=== PATIENT | female | born 1960 ===

== ENCOUNTER 2017-10-20 08:12 | Emergency (ER) | payer SELFPAY ==
[2017-10-20] MEDS ORDERED: Albuterol-Ipratrop 3 mg / 0.5 (3 ml) UD ONE ×2 (08:29→08:56)
--- NOTE | 2017-10-20 08:42 | C.PDOC ---
History Of Present Illness 57 year old female with PMHx of asthma, COPD, HTN and depression presents to the ED for evaluation of URI symptoms, generalized body aches and stomach pain. Patient reports she came from [place] about a month ago, she is currently staying with her daughter and reports that the week of she caught a cold that has been getting progressively worse. Patient states she was using albuterol at home, last 2 days started using more often due to her symptoms getting worse and ran out of it this morning. Patient also states she had a subjective fever and chills. Patient denies headache, nausea, vomit, diarrhea, dysuria, hematuria. Time Seen by Provider: 10/20/17 08:26 Chief Complaint (Nursing): Flu-like Symptoms History Per: Patient History/Exam Limitations: no limitations Onset/Duration Of Symptoms: Days Current Symptoms Are (Timing): Still Present Location Of Pain: Diffuse Myalgias Sick Contacts (Context): None Associated Symptoms: Fever, Chills, Sinus Drainage, Myalgias, Nasal Congestion Ear Symptoms: Bilateral: None Severity: Mild Recent travel outside of the [facility]: Yes (Arrived form [place] a month ago) Additional History Per: Patient Past Medical History Reviewed: Historical Data, Nursing Documentation, Vital Signs Vital Signs: Last Vital Signs Temp 98.4 F 10/20/17 08:15 Pulse 98 H 10/20/17 10:30 Resp 20 10/20/17 10:30 BP 141/83 10/20/17 10:30 Pulse Ox 98 10/20/17 10:50 - Medical History PMH: Asthma, Depression, HTN Surgical History: No Surg Hx Family History: States: Unknown Family Hx - Social History Hx Alcohol Use: Yes Hx Substance Use: No - Immunization History Hx Tetanus Toxoid Vaccination: No Hx Influenza Vaccination: No Hx Pneumococcal Vaccination: No Review Of Systems Constitutional: Positive for: Fever, Chills ENT: Positive for: Nose Discharge, Nose Congestion Cardiovascular: Negative for: Chest Pain Respiratory: Positive for: Shortness of Breath. Negative for: Cough Gastrointestinal: Negative for: Nausea, Vomiting, Abdominal Pain Genitourinary: Negative for: Dysuria, Hematuria Musculoskeletal: Negative for: Back Pain Skin: Negative for: Rash Neurological: Negative for: Weakness, Numbness, Headache Physical Exam - Physical Exam Appears: Non-toxic, No Acute Distress Skin: Normal Color, Warm, Dry Head: Atraumatic, Normacephalic Nose: Discharge, Other (Congested) Oral Mucosa: Moist Throat: Normal, No Erythema, No Exudate Neck: Normal ROM, Supple Chest: Symmetrical Cardiovascular: Rhythm Regular, No Murmur Respiratory: Normal Breath Sounds, No Rales, No Rhonchi, No Wheezing Gastrointestinal/Abdominal: Soft, No Tenderness Extremity: Normal ROM, No Calf Tenderness, No Deformity, No Swelling Neurological/Psych: Oriented x3, Normal Speech, Normal Cognition Gait: Steady ED Course And Treatment O2 Sat by Pulse Oximetry: 98 (On RA) Pulse Ox Interpretation: Normal - Radiology CXR: Interpreted by Me, Viewed By Me CXR Interpretation: Yes: Other (No focal consolidation, significant pleural effusion, or definite pneumothorax identified.). No: No Acute Disease, Infiltrates Medical Decision Making Medical Decision Making: Impression : 57 y/o female with URI symptoms Plan: * CXR * Duoneb 3 ml IH * Motrin 600 mg PO * Tamiflu 75 mg PO * Prednisone 60 mg PO * Nebuilizer tretament * Influenza A B test Patient feeling better, negative for flu. will d/c with f/u. Disposition Counseled Patient/Family Regarding: Diagnosis, Need For Followup, Rx Given - Disposition Referrals: [facility] at [facility] [Outside] Disposition: HOME/ ROUTINE Disposition Time: 10:47 Condition: STABLE Additional Instructions: Follow up with your doctor or our clinic. Prescriptions: Ibuprofen [Motrin] 600 mg PO TID #15 tab Prednisone [Deltasone] 60 mg PO DAILY #15 tablet Instructions: Asthma (ED) Forms: [facility] (Jamaican), General Discharge Instructions - POA Present On Arrival: None - Clinical Impression Clinical Impression: Influenza-like illness, COPD exacerbation, Asthma - Scribe Statement The provider has reviewed the documentation as recorded by the Scribe Ata Pettit All medical record entries made by the Scribe were at my direction and personally dictated by me. I have reviewed the chart and agree that the record accurately reflects my personal performance of the history, physical exam, medical decision making, and the department course for this patient. I have also personally directed, reviewed, and agree with the discharge instructions and disposition.
[2017-10-20] MEDS: Albuterol-Ipratrop 3 mg / 0.5 (3 ml) UD IH SCH ×3 (09:00→09:30)
[2017-10-20 10:31] VITALS: RESP 20
--- NOTE | 2017-10-20 10:58 | RAD ---
HISTORY: SOB COMPARISON: None available. TECHNIQUE: Chest, one view. FINDINGS: Examination limited by habitus. LUNGS: No focal consolidation. Please note that chest x-ray has limited sensitivity for the detection of pulmonary masses. PLEURA: No significant pleural effusion identified. No definite pneumothorax . CARDIOVASCULAR: The cardiomediastinal silhouette appears within normal limits of size. OSSEOUS STRUCTURES: No acute osseous abnormality identified. VISUALIZED UPPER ABDOMEN: Unremarkable. OTHER FINDINGS: None. IMPRESSION: No focal consolidation, significant pleural effusion, or definite pneumothorax identified.
[2017-10-20 11:27] VITALS: BP 139/89; PULSE 93; TEMP 97.9; O2SAT 96
== END 2017-10-20 11:27 | disposition home or self-care (01) ==
LOC: C.ER 08:12
DX: J11.1 Influenza due to unidentified influenza virus with other respiratory manifestations (principal); J44.1 Chronic obstructive pulmonary disease with (acute) exacerbation

== ENCOUNTER 2017-12-15 12:21 | Emergency (ER) | payer MEDICAID, OTHER ==
[2017-12-15 12:30] VITALS: RESP 18; O2SAT 97
[2017-12-15] MEDS ORDERED: Albuterol-Ipratrop 3 mg / 0.5 (3 ml) UD INH STA ×2 (12:57→14:04)
[2017-12-15] MEDS ORDERED: Albuterol-Ipratrop 3 mg / 0.5 (3 ml) UD ONE ×2 (13:13→14:10)
--- NOTE | 2017-12-15 13:22 | RAD ---
HISTORY: SOB COMPARISON: Chest x-ray performed 10/20/17 TECHNIQUE: Chest PA and lateral FINDINGS: Examination limited by habitus. LUNGS: No focal consolidation. Please note that chest x-ray has limited sensitivity for the detection of pulmonary masses. PLEURA: No significant pleural effusion identified. No definite pneumothorax . CARDIOVASCULAR: The cardiomediastinal silhouette appears within normal limits of size. OSSEOUS STRUCTURES: No acute osseous abnormality identified. VISUALIZED UPPER ABDOMEN: Unremarkable. OTHER FINDINGS: None. IMPRESSION: No focal consolidation identified.
--- NOTE | 2017-12-15 13:22 | C.PDOC ---
History Of Present Illness 57-year-old female, PMHx includes Asthma, Hypertension, Anxiety and Depression ( medication not taken after moving from [place]), presents to the emergency department with complaints of nasal congestion, and productive cough over the past several days. Patient states symptoms have been gradually worsening, and feels like asthma exacerbation. Patient reports she is using her asthma medications at home with minimal relief. Denies fevers or chills. No other complaints at this time. Time Seen by Provider: 12/15/17 12:47 Chief Complaint (Nursing): Cough, Cold, Congestion History Per: Patient History/Exam Limitations: no limitations Onset/Duration Of Symptoms: Days Current Symptoms Are (Timing): Still Present Severity: Moderate Past Medical History Reviewed: Historical Data, Nursing Documentation, Vital Signs Vital Signs: Last Vital Signs Temp 97.8 F 12/15/17 12:26 Pulse 95 H 12/15/17 12:26 Resp 18 12/15/17 12:26 BP 145/97 H 12/15/17 12:26 Pulse Ox 97 12/15/17 14:44 - Medical History PMH: Anxiety, Asthma, Bronchitis (hx of chronic bronchitis), Depression, HTN Family History: States: No Known Family Hx - Social History Hx Alcohol Use: Yes Hx Substance Use: No - Immunization History Hx Tetanus Toxoid Vaccination: No Hx Influenza Vaccination: No Hx Pneumococcal Vaccination: No Review Of Systems Constitutional: Negative for: Fever, Chills Cardiovascular: Negative for: Chest Pain Respiratory: Positive for: Cough, Shortness of Breath, Wheezing Gastrointestinal: Negative for: Nausea, Vomiting Musculoskeletal: Negative for: Back Pain Neurological: Negative for: Weakness, Numbness, Headache, Dizziness Physical Exam - Physical Exam Appears: Non-toxic, No Acute Distress Skin: Warm, Dry, No Rash Head: Normacephalic Eye(s): bilateral: Normal Inspection, PERRL Nose: Normal Oral Mucosa: Moist Lips: Normal Appearing Neck: Normal ROM Chest: Symmetrical Cardiovascular: Rhythm Regular, No Murmur Respiratory: No Decreased Breath Sounds, No Accessory Muscle Use, Wheezing (B/L , expiratory), Other (No acute respiratory distress) Extremity: Normal ROM Neurological/Psych: Oriented x3, Normal Speech ED Course And Treatment - Laboratory Results Result Diagrams: 12/15/17 13:28 12/15/17 13:28 ECG: Interpreted By Me, Viewed By Me ECG Rhythm: Sinus Rhythm, PVC (Isolated) ECG Interpretation: No Acute Changes Interpretation Of ECG: Non-specific T wave changes Rate From EC O2 Sat by Pulse Oximetry: 97 (RA) Pulse Ox Interpretation: Normal Medical Decision Making Medical Decision Making: Plan: * EKG * BNP, CMP, Trop * CBC * Chest X-Ray * Duoneb, Prednisone * Peak Flow * Reassess and Disposition Reassess: On re-evaluation. patient does not appear to be in any acute distress. Wheezing has improved and lungs are CTA bilaterally. She will be discharged for outpatient f/u with PMD/clinic in 1-2 days and Rx. Patient is agreeable with plan and all questions answered. Disposition Counseled Patient/Family Regarding: Studies Performed, Diagnosis, Need For Followup, Rx Given - Disposition Referrals: [facility] [Outside] Disposition: HOME/ ROUTINE Disposition Time: 14:37 Condition: STABLE Additional Instructions: follow up with your doctor in 2 days call to make an appointment take medications as prescribed return to ER if symptoms worsens or progress Prescriptions: Albuterol HFA [Ventolin HFA 90 mcg/actuation (8 g)] 2 puff IH [id number] #1 puff Azithromycin [Zithromax] 250 mg PO DAILY #4 tab Ondansetron ODT [Zofran ODT] 4 mg PO TID PRN #12 odt PRN Reason: Nausea/Vomiting predniSONE [predniSONE Tab] 50 mg PO DAILY #4 tab Instructions: Acute Bronchitis (ED) Forms: [facility] (Wallisian), General Discharge Instructions - Clinical Impression Clinical Impression: Bronchitis - Scribe Statement The provider has reviewed the documentation as recorded by the Scribe (Sal Martin) All medical record entries made by the Scribe were at my direction and personally dictated by me. I have reviewed the chart and agree that the record accurately reflects my personal performance of the history, physical exam, medical decision making, and the department course for this patient. I have also personally directed, reviewed, and agree with the discharge instructions and disposition.
[2017-12-15 13:36] LABS: BASO # 0.1 K/uL (0.0-0.2); BASO % 0.8 % (0.0-2.0); EOS # 0.4 K/uL (0.0-0.7); EOS % 3.7 % (0.0-4.0); HEMOGLOBIN 13.7 g/dL (11.0-16.0); LYMPH # 4.4 K/uL (1.0-4.3); LYMPH % 42.1 % (20.0-40.0); MEAN CELL VOLUME 86.5 fL (81.0-99.0); MEAN CORPUSCULAR HEMOGLOBIN 29.1 pg (27.0-31.0); MEAN CORPUSCULAR HGB CONC 33.6 g/dL (33.0-37.0); MEAN PLATELET VOLUME 9.6 fL (7.2-11.7); MONO # 0.6 K/uL (0.0-0.8); MONO % 5.9 % (0.0-10.0); NEUT # 4.9 K/uL (1.8-7.0); NEUT % 47.5 % (50.0-75.0); NRBC % 0.1 % (0.0-2.0); RBC 4.72 Mil/uL (3.80-5.20); RED CELL DISTRIBUTION WIDTH 18.5 % (11.5-14.5); WHITE BLOOD COUNT 10.4 K/uL (4.8-10.8)
[2017-12-15 13:45] LABS: ALB/GLOB RATIO 0.9 (1.0-2.1); ALT/SGPT 44 U/L (9-52); AST/SGOT 43 U/L (14-36); BLOOD UREA NITROGEN 10 mg/dL (7-17); GFR AFRICAN-AMERICAN > 60; GFR NON-AFRICAN AMERICAN > 60
[2017-12-15 13:57] LABS: B-TYPE NATRIURETIC PEPTIDE 59.5 pg/mL (0-900)
[2017-12-15 15:19] VITALS: BP 134/96; PULSE 90; TEMP 97
== END 2017-12-15 15:15 | disposition home or self-care (01) ==
LOC: C.ER 12:21
DX: J40 Bronchitis, not specified as acute or chronic (principal); I10 Essential (primary) hypertension

== ENCOUNTER 2018-02-24 15:25 | Observation (INO) | payer MEDICAID, OTHER ==
[2018-02-24] MEDS ORDERED: Albuterol-Ipratrop 3 mg / 0.5 (3 ml) UD INH STA ×3 (15:46→17:35)
[2018-02-24 16:02] LABS: BASO # 0.1 K/uL (0.0-0.2); BASO % 0.6 % (0.0-2.0); EOS # 0.4 K/uL (0.0-0.7); EOS % 3.1 % (0.0-4.0); HEMOGLOBIN 13.4 g/dL (11.0-16.0); LYMPH # 4.2 K/uL (1.0-4.3); LYMPH % 35.7 % (20.0-40.0); MEAN CELL VOLUME 88.7 fL (81.0-99.0); MEAN CORPUSCULAR HEMOGLOBIN 30.5 pg (27.0-31.0); MEAN CORPUSCULAR HGB CONC 34.4 g/dL (33.0-37.0); MEAN PLATELET VOLUME 10.1 fL (7.2-11.7); MONO # 0.7 K/uL (0.0-0.8); MONO % 5.8 % (0.0-10.0); NEUT # 6.4 K/uL (1.8-7.0); NEUT % 54.8 % (50.0-75.0); RBC 4.39 Mil/uL (3.80-5.20); RED CELL DISTRIBUTION WIDTH 16.7 % (11.5-14.5); WHITE BLOOD COUNT 11.7 K/uL (4.8-10.8)
[2018-02-24] MEDS ORDERED: Albuterol-Ipratrop 3 mg / 0.5 (3 ml) UD ONE ×2 (16:11→17:40)
[2018-02-24 16:22] LABS: ALBUMIN 4.1 g/dL (3.5-5.0); ALT/SGPT 35 U/L (9-52); AST/SGOT 39 U/L (14-36); BLOOD UREA NITROGEN 14 mg/dL (7-17); CALCIUM 9.4 mg/dl (8.6-10.4); GFR AFRICAN-AMERICAN > 60; GFR NON-AFRICAN AMERICAN > 60
--- NOTE | 2018-02-24 16:31 | RAD ---
PROCEDURE: CHEST RADIOGRAPH, 1 VIEW HISTORY: Shortness of breath COMPARISON: 12/15/2017. FINDINGS: LUNGS: The lungs are well inflated and clear. PLEURA: No pneumothorax or pleural fluid seen. CARDIOVASCULAR: There is mild cardiomegaly. OSSEOUS STRUCTURES: No significant abnormalities. VISUALIZED UPPER ABDOMEN: Normal. OTHER FINDINGS: None. IMPRESSION: No active pulmonary disease.
[2018-02-24 16:34] LABS: B-TYPE NATRIURETIC PEPTIDE 32.9 pg/mL (0-900)
--- NOTE | 2018-02-24 16:40 | C.PDOC ---
History Of Present Illness 58 year old female, whose PMHx includes asthma, presents to the ED for evaluation of shortness of breath which has been progressing over the past 2 weeks. She also reports a nonproductive cough that is associated with chest pain. Patient reports using her home medications without improvement. Patient admits to smoking cigarettes. She denies fever, chills, or history of prior intubations. Time Seen by Provider: 02/24/18 15:41 Chief Complaint (Nursing): Shortness Of Breath History Per: Patient History/Exam Limitations: no limitations Onset/Duration Of Symptoms: Other (2 weeks ) Current Symptoms Are (Timing): Still Present Quality: "Pain" Current Respiratory Medications: See Home Med List Associated Symptoms: Chest Pain (associated with cough ). denies: Fever, Chills , Productive Cough (nonproductive ) Additional History Per: Patient Past Medical History Reviewed: Historical Data, Nursing Documentation, Vital Signs Vital Signs: Last Vital Signs Temp 98.1 F 02/24/18 23:52 Pulse 94 H 02/24/18 23:52 Resp 18 02/24/18 23:52 BP 112/72 02/24/18 23:52 Pulse Ox 97 02/25/18 04:15 - Medical History PMH: Anxiety, Asthma, Bronchitis (hx of chronic bronchitis), Depression, HTN Surgical History: No Surg Hx Family History: States: Unknown Family Hx - Social History Hx Tobacco Use: Yes Hx Alcohol Use: Yes Hx Substance Use: No - Immunization History Hx Tetanus Toxoid Vaccination: No Hx Influenza Vaccination: No Hx Pneumococcal Vaccination: No Review Of Systems Constitutional: Negative for: Fever, Chills Cardiovascular: Positive for: Chest Pain Respiratory: Positive for: Cough, Shortness of Breath. Negative for: Sputum Physical Exam - Physical Exam Appears: Non-toxic, No Acute Distress Skin: Normal Color, Warm, Dry Head: Atraumatic, Normacephalic Eye(s): bilateral: Normal Inspection Oral Mucosa: Moist Neck: Supple Chest: Symmetrical, No Deformity, No Tenderness Cardiovascular: Rhythm Regular, No Murmur Respiratory: No Rales, No Rhonchi, Wheezing (expiratory ) Gastrointestinal/Abdominal: Normal Exam, Bowel Sounds, Soft Extremity: Normal ROM, Capillary Refill (less than 2 seconds ) Neurological/Psych: Oriented x3, Normal Speech, Normal Cognition ED Course And Treatment - Laboratory Results Result Diagrams: 02/25/18 06:40 02/25/18 06:40 ECG: Interpreted By Me, Viewed By Me ECG Rhythm: Sinus Rhythm Interpretation Of ECG: Normal Sinus Rhythm at rate 83bpm. Normal axis. Normal intervals. Rate From EC O2 Sat by Pulse Oximetry: 98 (on RA) Pulse Ox Interpretation: Normal Medical Decision Making Medical Decision Making: Assessment: shortness of breath, cough, chest pain Plan: * bloodwork * CXR * EKG * Albuterol INH * Solu-Medrol IVP * reassess and disposition Progress: Bloodwork, CXR, EKG ordered and reviewed. Albuterol INH and Solu-Medrol IVP administered. Disposition Discussed With Dr.: Michael Burnett Jr. Doctor Will See Patient In The: Hospital Counseled Patient/Family Regarding: Studies Performed, Diagnosis - Disposition Disposition: HOSPITALIZED Disposition Time: 17:55 Condition: FAIR - Clinical Impression Clinical Impression: Status asthmaticus - Scribe Statement The provider has reviewed the documentation as recorded by the Scribe (Clementine Mcgowan) Provider Attestation: All medical record entries made by the Scribe were at my direction and personally dictated by me. I have reviewed the chart and agree that the record accurately reflects my personal performance of the history, physical exam, medical decision making, and the department course for this patient. I have also personally directed, reviewed, and agree with the discharge instructions and disposition.
[2018-02-24] MEDS ORDERED: cefTRIAXone IV 1 gm in Dextros 50 ML IVPB STA (19:04)
[2018-02-24] MEDS ORDERED: cefTRIAXone IV 1 gm in Dextros 50 ML IVPB ONE (19:30)
--- NOTE | 2018-02-24 19:51 | CP.PCM.HP ---
History of Present Illness - History of Present Illness History of Present Illness: CC: SOB, cough 2 weeks, fevers/chills, back [id number] PMD: Dr. Galindo From [place] FULL CODE This patient is a 58yo F w/ a PMhx of HTN, Asthma only on albuterol currently smoking 1/2 pack a day living with 4 other smokers, depression/anxiety and stressful living situation who is coming into the hospital for 2 weeks of shortness of breath which is not relieved by her inhalers. She also is complaining of a hacking cough, white phlegm, for 2 weeks. She was recently in [place] on vacation, and came back 4 days ago which is when her back pain started. She states she had PFT's done recently which showed "fluid' on her lungs, but did not diagnose her with COPD. She is admitting to fevers/chills, SOB, and back/lung pain that is 5/10 in nature, and tingling in her lower extremities and finger tips. She denies SCHWARTZ, CP, abdominal pain, N/V/D, dysuria/ freq/urg or lower extremity swelling. No hx of blood clots or family blood clots. PMhx: HTN, Asthma, Depression/Anxiety Meds: Enalapril maleate 5mg, Hctz 12.5mg, Seroquel 100mg HS, gabapentin 300mg TID Allergies: Denies Surgeries: 2c sections, total abdominal hysterectomy FamHx: DM, HTN, cervical cancer grandma Social: Smokes 1/2 pack a day, smokes marijuana daily as well, currently not working 2/2 to pain, independent in all IADL and ADL Present on Admission - Present on Admission Any Indicators Present on Admission: No History of DVT/PE: No History of Uncontrolled Diabetes: No Past Patient History - Infectious Disease Hx of Infectious Diseases: None - Past Social History Smoking Status: Light Smoker < 10 Cigarettes Daily - CARDIAC Hx Hypertension: Yes - PULMONARY Hx Asthma: Yes Hx Bronchitis: Yes (hx of chronic bronchitis) - PSYCHIATRIC Hx Anxiety: Yes Hx Depression: Yes Hx Substance Use: No - SURGICAL HISTORY Hx Section: Yes Hx Hysterectomy: Yes Other/Comment: CYST REMOVAL, TUMOR REMOVAL FROM BREAST - ANESTHESIA Hx Anesthesia: Yes Hx Anesthesia Reactions: No Hx Malignant Hyperthermia: No Meds Allergies/Adverse Reactions: Allergies Allergy/AdvReac Type Severity Reaction Status Date / Time No Known Allergies Allergy Verified 02/24/18 15:32 Physical Exam - Constitutional Appears: Well, Non-toxic Additional comments: coughing, short of breath, RR 20 - Head Exam Head Exam: ATRAUMATIC, NORMAL INSPECTION - Eye Exam Eye Exam: EOMI, Normal appearance, PERRL. absent: Scleral icterus Pupil Exam: NORMAL ACCOMODATION, PERRL. absent: Unequal - ENT Exam ENT Exam: Mucous Membranes Moist - Neck Exam Neck exam: Positive for: Full Rom. Negative for: Lymphadenopathy, Tenderness, Thyromegaly - Respiratory Exam Respiratory Exam: Wheezes, NORMAL BREATHING PATTERN. absent: Chest Wall Tenderness, Decreased Breath Sounds, Clear to Auscultation Bilateral (rhales left lower lung field ), Respiratory Distress, Stridor - Cardiovascular Exam Cardiovascular Exam: REGULAR RHYTHM, +S1, +S2 - GI/Abdominal Exam GI & Abdominal Exam: Normal Bowel Sounds, Soft. absent: Hernia, Organomegaly, Pulsatile Mass, Rebound, Rigid, Tenderness - Extremities Exam Extremities exam: Positive for: full ROM. Negative for: calf tenderness, pedal edema, tenderness - Back Exam Back exam: NORMAL INSPECTION. absent: CVA tenderness (L), CVA tenderness (R) - Neurological Exam Neurological exam: Alert, CN II-XII Intact, Normal Gait, Oriented x3 - Psychiatric Exam Psychiatric exam: Normal Affect, Normal Mood - Skin Skin Exam: Warm Results - Vital Signs Recent Vital Signs: Last Vital Signs Temp 98.4 F 02/24/18 19:21 Pulse 102 H 02/24/18 19:23 Resp 16 02/24/18 19:23 BP 136/76 02/24/18 19:23 Pulse Ox 96 02/24/18 19:23 - Labs Result Diagrams: 02/24/18 15:58 02/24/18 15:58 Labs: Laboratory Results - last 24 hr 02/24/18 02/24/18 02/24/18 15:58 15:58 19:02 WBC 11.7 H RBC 4.39 Hgb 13.4 Hct 39.0 MCV 88.7 D MCH 30.5 MCHC 34.4 RDW 16.7 H Plt Count 148 MPV 10.1 Neut % (Auto) 54.8 Lymph % (Auto) 35.7 [place] % (Auto) 5.8 Eos % (Auto) 3.1 Baso % (Auto) 0.6 Neut # (Auto) 6.4 Lymph # (Auto) 4.2 [place] # (Auto) 0.7 Eos # (Auto) 0.4 Baso # (Auto) 0.1 Sodium 143 Potassium 3.5 L Chloride 104 Carbon Dioxide 25 Anion Gap 17 BUN 14 Creatinine 0.8 Est GFR ( Amer) > 60 Est GFR (Non-Af Amer) > 60 Random Glucose 103 Calcium 9.4 Total Bilirubin 0.7 AST 39 H ALT 35 Alkaline Phosphatase 140 H Troponin I < 0.0120 NT-Pro-B Natriuret Pep 32.9 Total Protein 8.2 Albumin 4.1 Globulin 4.1 H Albumin/Globulin Ratio 1.0 Influenza Typ A,B (EIA) Negative for flu a/b Assessment & Plan - Assessment and Plan (Free Text) Assessment: 58yo F admitted for Asthma Exacerbation and Community Acquired PNA PNA -elevated WBC, tactile fevers/chills, cough with productive sputum, rhales on exam -CAP -Azithromycin 500mg Ceftriaxone 1g daily -mucinex BID -incentive spirometry -OOB encouraged -smoking cessation -duonebs PRN -sputum cultures f/u -blood cultures f/u -f/u D-Dimer as patient does not PERC out; if negative PE most likely ruled out however if positive will order CTA PE protocol; creatinine good Asthma Exacerbation -duonebs -patient will need long acting inhaler on discharge -smoking cessation Hx of HTN -c/w enalapril and hctz -will monitor Hx of Depression -c/w seroquel -c/w gabapentin Current Smoker -patch given -patient wants to quit Proph -GI prophylaxis not indicated -DVT proph SCD while sleeping, OOB encouraged -f/u TSH, hemoglobin A1C, lipid panel Discussed with Dr. Lex Scott PGY2 Decision To Admit - Pt Status Changed To: Hospital Disposition Of: Inpatient - Admit Certification Admit to Inpatient:: After my assessment, the patient will require hospitalization for at least two midnights. This is because of the severity of symptoms shown, intensity of services needed, and/or the medical risk in this patient being treated as an outpatient. - InPatient: Physician Admission Certification:: CAP needing IV abx - . Bed Request Type: Regular Admitting Physician: Michael Burnett Jr.
[2018-02-24] MEDS: Azithromycin 500 MG in Sodium Chloride 0.9% 250 ML IVPB SCH (20:00)
[2018-02-24] MEDS ORDERED: Azithromycin 500 MG in Sodium Chloride 0.9% 250 ML IVPB ONE (20:00)
[2018-02-24] MEDS: guaiFENesin 600 mg ER Tab PO SCH (21:00)
[2018-02-25] MEDS: Albuterol-Ipratrop 3 mg / 0.5 (3 ml) UD INH PRN ×2 (01:34→13:00)
[2018-02-25 06:51] LABS: BASO # 0.1 K/uL (0.0-0.2); BASO % 0.5 % (0.0-2.0); HEMOGLOBIN 12.8 g/dL (11.0-16.0); LYMPH # 1.5 K/uL (1.0-4.3); LYMPH % 11.3 % (20.0-40.0); MEAN CELL VOLUME 89.6 fL (81.0-99.0); MEAN CORPUSCULAR HEMOGLOBIN 30.5 pg (27.0-31.0); MEAN CORPUSCULAR HGB CONC 34.1 g/dL (33.0-37.0); MEAN PLATELET VOLUME 10.5 fL (7.2-11.7); MONO # 0.2 K/uL (0.0-0.8); MONO % 1.5 % (0.0-10.0); NEUT # 11.6 K/uL (1.8-7.0); NEUT % 86.7 % (50.0-75.0); RBC 4.19 Mil/uL (3.80-5.20); RED CELL DISTRIBUTION WIDTH 16.6 % (11.5-14.5); WHITE BLOOD COUNT 13.3 K/uL (4.8-10.8)
[2018-02-25 07:08] LABS: ALBUMIN 3.9 g/dL (3.5-5.0); ALT/SGPT 27 U/L (9-52); AST/SGOT 32 U/L (14-36); BLOOD UREA NITROGEN 18 mg/dL (7-17); CALCIUM 9.6 mg/dl (8.6-10.4); GFR AFRICAN-AMERICAN > 60; GFR NON-AFRICAN AMERICAN > 60; HDL CHOLESTEROL 49 mg/dL (30-70)
[2018-02-25 07:12] LABS: LDL CHOLESTEROL 68 mg/dL (0-129)
[2018-02-25 08:03] VITALS: RESP 20
[2018-02-25] MEDS: guaiFENesin 600 mg ER Tab PO SCH (09:15)
[2018-02-25] MEDS: Azithromycin 500 MG in Sodium Chloride 0.9% 250 ML IVPB SCH (09:16)
[2018-02-25] MEDS ORDERED: cefTRIAXone IV 1 gm in Dextros 50 ML IVPB SCH (10:00)
[2018-02-25] MEDS ORDERED: Oxycodone/Acetaminophen 5/325 mg Tab PO ONE (14:19)
[2018-02-25] MEDS: guaiFENesin-Codeine 100-10mg/5ml Syrup (10ml) UD PO SCH (17:49)
--- NOTE | 2018-02-25 19:45 | CP.PCM.PN ---
Subjective - Date & Time of Evaluation Date of Evaluation: 02/25/18 Time of Evaluation: 21:05 - Subjective Subjective: Patient seen and examined at bedside Doing well. States back pain is almost completely resolved but still feels like she has phlegm stuck in her chest. No other complaints at this time Objective - Vital Signs/Intake and Output Vital Signs (last 24 hours): Temp Pulse Resp BP Pulse Ox 98.3 F 90 20 111/69 96 02/25/18 16:03 02/25/18 16:03 02/25/18 16:03 02/25/18 16:03 02/25/18 16:03 - Medications Medications: Current Medications Albuterol/Ipratropium (Duoneb 3 Mg/0.5 Mg (3 Ml) Ud) 3 ml INH RQ4 [facility] Enalapril Maleate (Vasotec) 20 mg PO DAILY [facility] Last Admin: 02/25/18 09:16 Dose: 20 mg Enoxaparin Sodium (Lovenox) 40 mg SC DAILY [facility] Gabapentin (Neurontin) 300 mg PO BID [facility] Last Admin: 02/25/18 17:45 Dose: 300 mg Guaifenesin/Codeine Phosphate (Guaifenesin/Codeine) 10 ml PO Q6 [facility] Stop: 02/26/18 06:01 Last Admin: 02/25/18 17:49 Dose: 10 ml Azithromycin 500 mg/ Sodium (Chloride) 250 mls @ 250 mls/hr IVPB DAILY [facility] PRN Reason: Protocol Last Admin: 02/25/18 09:16 Dose: 250 mls/hr Methylprednisolone (Solu-Medrol) 40 mg IV Q12 [facility] Nicotine (Nicoderm Cq) 1 patch TD DAILY [facility] Last Admin: 02/25/18 09:16 Dose: 1 patch Oxycodone/Acetaminophen (Percocet 5/325 Mg Tab) 1 tab PO Q8H PRN PRN Reason: Pain, moderate (4-7) Stop: 02/28/18 14:17 Quetiapine Fumarate (Seroquel) 100 mg PO HS [facility] Last Admin: 02/24/18 21:18 Dose: 100 mg Fluticasone/Salmeterol (Advair Diskus 250/50) 1 puff INH RQ12 [facility] Tiotropium [place] (Spiriva) 18 mcg INH RQ24 [facility] - Labs Labs: 02/25/18 06:40 02/25/18 06:40 - Constitutional Appears: Well - Head Exam Head Exam: ATRAUMATIC, NORMAL INSPECTION, NORMOCEPHALIC - Eye Exam Eye Exam: EOMI, Normal appearance, PERRL Pupil Exam: NORMAL ACCOMODATION, PERRL - ENT Exam ENT Exam: Mucous Membranes Moist, Normal Exam - Neck Exam Neck Exam: Full ROM, Normal Inspection. absent: Lymphadenopathy - Respiratory Exam Respiratory Exam: Clear to Ausculation Bilateral, NORMAL BREATHING PATTERN - Cardiovascular Exam Cardiovascular Exam: REGULAR RHYTHM, +S1, +S2. absent: Murmur - GI/Abdominal Exam GI & Abdominal Exam: Soft, Normal Bowel Sounds. absent: Tenderness - Extremities Exam Extremities Exam: Full ROM, Normal Capillary Refill, Normal Inspection. absent : Joint Swelling, Pedal Edema - Back Exam Back Exam: NORMAL INSPECTION - Neurological Exam Neurological Exam: Alert, Awake, CN II-XII Intact, Normal Gait, Oriented x3 - Psychiatric Exam Psychiatric exam: Normal Affect, Normal Mood - Skin Skin Exam: Dry, Intact, Normal Color, Warm Assessment and Plan (1) COPD exacerbation Assessment & Plan: Duonebs Q4 TEE Spiriva QD - will need script on discharge Advair Q12 - will need script on discharge Robitussin with codeine for the cough. I gave three doses scheduled. Reassess cough to determine if more is needed. May switch to PRN at this point Azithromycin 500 QD to decrease the inflammation associated with the attack. No PNA being treated Solumedrol 40 IV Q12 cough has resulted in severe back pain, resolved with Perc 5/325 Q8H Status: Acute (2) HTN (hypertension) Assessment & Plan: Vasotec 20 PO QD Status: Acute (3) Tobacco abuse Assessment & Plan: Nicotine patch counselling given Status: Acute (4) Insomnia Assessment & Plan: Seroquel 100 PO HS Status: Acute (5) Prophylactic measure Assessment & Plan: Lovenox 40 SC QD SCD No GI PPX indicated at this time Status: Acute
--- NOTE | 2018-02-25 21:49 | CARD ---
APPROVED REPORT EKG Measurement Heart [id number] <Conclusion> Normal sinus rhythm Normal ECG
[2018-02-25] MEDS: Oxycodone/Acetaminophen 5/325 mg Tab PO PRN (22:34)
[2018-02-25] MEDS: Albuterol-Ipratrop 3 mg / 0.5 (3 ml) UD INH SCH ×2 (22:44→23:59)
[2018-02-25] MEDS: Fluticasone-Salmeterol 250-50mcg Diskus INH SCH (22:45)
[2018-02-26] MEDS: Albuterol-Ipratrop 3 mg / 0.5 (3 ml) UD INH SCH ×5 (03:26→19:34)
[2018-02-26] MEDS: guaiFENesin-Codeine 100-10mg/5ml Syrup (10ml) UD PO SCH ×2 (05:39)
[2018-02-26] MEDS: Oxycodone/Acetaminophen 5/325 mg Tab PO PRN ×2 (06:51→18:40)
[2018-02-26 06:57] LABS: LYMPH # 1.8 K/uL (1.0-4.3); LYMPH % 10.9 % (20.0-40.0); MEAN CELL VOLUME 89.8 fL (81.0-99.0); MEAN CORPUSCULAR HEMOGLOBIN 30.3 pg (27.0-31.0); MEAN CORPUSCULAR HGB CONC 33.8 g/dL (33.0-37.0); MEAN PLATELET VOLUME 10.5 fL (7.2-11.7); MONO # 0.6 K/uL (0.0-0.8); MONO % 3.4 % (0.0-10.0); NEUT # 14.5 K/uL (1.8-7.0); NEUT % 85.7 % (50.0-75.0); RBC 3.97 Mil/uL (3.80-5.20); RED CELL DISTRIBUTION WIDTH 16.7 % (11.5-14.5)
[2018-02-26 07:46] LABS: ALB/GLOB RATIO 1.1 (1.0-2.1); ALBUMIN 3.7 g/dL (3.5-5.0); ALT/SGPT 28 U/L (9-52); AST/SGOT 30 U/L (14-36); BLOOD UREA NITROGEN 18 mg/dL (7-17); CALCIUM 9.4 mg/dl (8.6-10.4); GFR AFRICAN-AMERICAN > 60; GFR NON-AFRICAN AMERICAN > 60
[2018-02-26] MEDS: Tiotropium 18 mcg Cap For Inhalation INH SCH (07:50)
[2018-02-26] MEDS: Fluticasone-Salmeterol 250-50mcg Diskus INH SCH ×2 (07:51→19:34)
[2018-02-26] MEDS: Enoxaparin 40 mg Syringe SC SCH (10:45)
[2018-02-26] MEDS: Azithromycin 500 MG in Sodium Chloride 0.9% 250 ML IVPB SCH (10:47)
--- NOTE | 2018-02-26 16:57 | CP.PCM.PN ---
<Marisabel Leon - Last Filed: 02/26/18 17:42> Subjective - Date & Time of Evaluation Date of Evaluation: 02/26/18 Time of Evaluation: 16:49 - Subjective Subjective: PGY2 progress note for Dr. Burnett Pt seen and examined at bedside this monring. Pt states that her breathing has improved since her admission but she continues to complain of slight wheezing. Patient denies having any CP, abd pain, N/V/D/C, F/C. patient does c/o dry and chest congestion. Objective - Vital Signs/Intake and Output Vital Signs (last 24 hours): Temp Pulse Resp BP Pulse Ox 97.4 F L 88 20 123/84 97 02/26/18 15:00 02/26/18 15:00 02/26/18 15:00 02/26/18 15:00 02/26/18 15:00 Intake and Output: 02/26/18 02/26/18 06:59 18:59 Intake Total 680 Balance 680 - Medications Medications: Current Medications Albuterol/Ipratropium (Duoneb 3 Mg/0.5 Mg (3 Ml) Ud) 3 ml INH RQ4 [facility] Last Admin: 02/26/18 15:33 Dose: 3 ml Enalapril Maleate (Vasotec) 20 mg PO DAILY [facility] Last Admin: 02/26/18 10:44 Dose: 20 mg Enoxaparin Sodium (Lovenox) 40 mg SC DAILY [facility] Last Admin: 02/26/18 10:45 Dose: 40 mg Gabapentin (Neurontin) 300 mg PO BID [facility] Last Admin: 02/26/18 10:44 Dose: 300 mg Azithromycin 500 mg/ Sodium (Chloride) 250 mls @ 250 mls/hr IVPB DAILY [facility] PRN Reason: Protocol Last Admin: 02/26/18 10:47 Dose: 250 mls/hr Methylprednisolone (Solu-Medrol) 40 mg IV Q12 [facility] Last Admin: 02/26/18 10:44 Dose: 40 mg Nicotine (Nicoderm Cq) 1 patch TD DAILY [facility] Last Admin: 02/26/18 10:43 Dose: 1 patch Oxycodone/Acetaminophen (Percocet 5/325 Mg Tab) 1 tab PO Q8H PRN PRN Reason: Pain, moderate (4-7) Stop: 02/28/18 14:17 Last Admin: 02/26/18 06:51 Dose: 1 tab Pantoprazole Sodium (Protonix Ec Tab) 40 mg PO DAILY TEE Quetiapine Fumarate (Seroquel) 100 mg PO HS [facility] Last Admin: 02/25/18 21:17 Dose: 100 mg Fluticasone/Salmeterol (Advair Diskus 250/50) 1 puff INH RQ12 [facility] Last Admin: 02/26/18 07:51 Dose: 1 puff Tiotropium [place] (Spiriva) 18 mcg INH RQ24 [facility] Last Admin: 02/26/18 07:50 Dose: 18 mcg - Labs Labs: 02/26/18 06:45 02/26/18 06:45 - Constitutional Appears: Non-toxic, No Acute Distress - Head Exam Head Exam: ATRAUMATIC - ENT Exam ENT Exam: Mucous Membranes Moist - Respiratory Exam Respiratory Exam: Wheezes (expiratory diffuse ). absent: Accessory Muscle Use, Rales, Rhonchi, Respiratory Distress - Cardiovascular Exam Cardiovascular Exam: REGULAR RHYTHM, +S1. absent: Gallop, Rubs, +S2, Murmur - GI/Abdominal Exam GI & Abdominal Exam: Soft, Normal Bowel Sounds. absent: Distended, Firm, Guarding, Rigid, Tenderness, Organomegaly - Extremities Exam Extremities Exam: absent: Pedal Edema, Tenderness - Neurological Exam Neurological Exam: Alert, Awake, Oriented x3 - Psychiatric Exam Psychiatric exam: Normal Affect, Normal Mood - Skin Skin Exam: Dry, Intact, Normal Color, Warm Assessment and Plan - Assessment and Plan (Free Text) Assessment: (1) COPD exacerbation Assessment & Plan: Duonebs Q4 TEE Spiriva QD - will need script on discharge Advair Q12 - will need script on discharge Mucinex for chest congestion Azithromycin 500 QD to decrease the inflammation associated with the attack. No PNA being treated Solumedrol 40 IV changed to daily cough has resulted in severe back pain, resolved with Perc 5/325 Q8H Peak flow 270 Status: Acute (2) HTN (hypertension) Assessment & Plan: Vasotec 20 PO QD Status: Acute (3) Tobacco abuse Assessment & Plan: Nicotine patch Pt counselled on risk of tobacco abuse Status: Acute (4) Insomnia Assessment & Plan: Seroquel 100 PO HS Status: Acute (5) Prophylactic measure Assessment & Plan: Lovenox 40 SC QD SCD No GI PPX indicated at this time All orders and management per Dr. Burnett <Michael Burnett Jr. - Last Filed: 03/19/18 14:45> Objective - Vital Signs/Intake and Output Vital Signs (last 24 hours): Temp Pulse Resp BP Pulse Ox 98.5 F 67 20 119/74 97 02/27/18 08:00 02/27/18 08:00 02/27/18 08:00 02/27/18 09:58 02/27/18 08:00 - Labs Labs: 02/27/18 08:08 02/27/18 08:08 Attending/Attestation - Attestation I have personally seen and examined this patient.: Yes I have fully participated in the care of the patient.: Yes I have reviewed all pertinent clinical information, including history, physical exam and plan: Yes Notes (Text): 03/19/18 14:45 agree with resident note findings and plan of care.
[2018-02-26] MEDS: guaiFENesin 600 mg ER Tab PO SCH (17:31)
[2018-02-26] MEDS: Pantoprazole 40 mg EC Tab PO SCH (17:31)
[2018-02-26] MEDS: Promethazine/Cod 6.25mg-10mg/5ml Syr UD PO PRN ×2 (18:40→23:36)
[2018-02-27] MEDS: Albuterol-Ipratrop 3 mg / 0.5 (3 ml) UD INH SCH ×5 (00:49→17:05)
[2018-02-27] MEDS: Promethazine/Cod 6.25mg-10mg/5ml Syr UD PO PRN (05:43)
[2018-02-27] MEDS: Oxycodone/Acetaminophen 5/325 mg Tab PO PRN (05:45)
[2018-02-27 08:25] LABS: BASO % 0.1 % (0.0-2.0); HEMOGLOBIN 12.1 g/dL (11.0-16.0); LYMPH % 19.5 % (20.0-40.0); MEAN CELL VOLUME 89.9 fL (81.0-99.0); MEAN CORPUSCULAR HEMOGLOBIN 30.5 pg (27.0-31.0); MEAN PLATELET VOLUME 10.5 fL (7.2-11.7); MONO # 0.8 K/uL (0.0-0.8); MONO % 4.9 % (0.0-10.0); NEUT # 11.7 K/uL (1.8-7.0); NEUT % 75.5 % (50.0-75.0); RBC 3.98 Mil/uL (3.80-5.20); RED CELL DISTRIBUTION WIDTH 16.7 % (11.5-14.5); WHITE BLOOD COUNT 15.5 K/uL (4.8-10.8)
[2018-02-27 08:42] LABS: ALB/GLOB RATIO 1.1 (1.0-2.1); ALBUMIN 3.8 g/dL (3.5-5.0); ALT/SGPT 31 U/L (9-52); AST/SGOT 22 U/L (14-36); BLOOD UREA NITROGEN 22 mg/dL (7-17); CALCIUM 9.4 mg/dl (8.6-10.4); GFR AFRICAN-AMERICAN > 60; GFR NON-AFRICAN AMERICAN > 60
[2018-02-27] MEDS: Fluticasone-Salmeterol 250-50mcg Diskus INH SCH (09:54)
[2018-02-27] MEDS: Tiotropium 18 mcg Cap For Inhalation INH SCH (09:55)
[2018-02-27] MEDS: guaiFENesin 600 mg ER Tab PO SCH ×2 (09:57→17:00)
[2018-02-27] MEDS: Pantoprazole 40 mg EC Tab PO SCH (09:57)
[2018-02-27] MEDS: Enoxaparin 40 mg Syringe SC SCH (09:57)
[2018-02-27 09:58] VITALS: BP 119/74
[2018-02-27] MEDS: Azithromycin 500 MG in Sodium Chloride 0.9% 250 ML IVPB SCH (09:58)
[2018-02-27 13:26] VITALS: PULSE 67; TEMP 98.5; O2SAT 97
--- NOTE | 2018-02-27 15:37 | CP.PCM.DIS ---
Provider - Provider Date of Admission: 02/26/18 15:36 Attending physician: Michael Burnett Jr, MD Primary care physician: Dr. Emi Burnett Time Spent in preparation of Discharge (in minutes): 45 Diagnosis - Discharge Diagnosis (1) HTN (hypertension) Status: Chronic (2) Tobacco abuse Status: Chronic (3) COPD exacerbation Status: Acute Hospital Course - Lab Results Lab Results: Micro Results 02/24/18 15:56 Blood-Venous Blood Culture - Preliminary NO GROWTH AFTER 48 HOURS 02/24/18 19:10 Blood-Venous Blood Culture - Preliminary NO GROWTH AFTER 48 HOURS Most Recent Lab Values WBC 15.5 K/uL (4.8-10.8) H 02/27/18 08:08 RBC 3.98 Mil/uL (3.80-5.20) 02/27/18 08:08 Hgb 12.1 g/dL (11.0-16.0) 02/27/18 08:08 Hct 35.7 % (34.0-47.0) 02/27/18 08:08 MCV 89.9 fL (81.0-99.0) 02/27/18 08:08 MCH 30.5 pg (27.0-31.0) 02/27/18 08:08 MCHC 34.0 g/dL (33.0-37.0) 02/27/18 08:08 RDW 16.7 % (11.5-14.5) H 02/27/18 08:08 Plt Count 138 K/uL (130-400) 02/27/18 08:08 MPV 10.5 fL (7.2-11.7) 02/27/18 08:08 Neut % (Auto) 75.5 % (50.0-75.0) H 02/27/18 08:08 Lymph % (Auto) 19.5 % (20.0-40.0) L 02/27/18 08:08 [place] % (Auto) 4.9 % (0.0-10.0) 02/27/18 08:08 Eos % (Auto) 0.0 % (0.0-4.0) 02/27/18 08:08 Baso % (Auto) 0.1 % (0.0-2.0) 02/27/18 08:08 Neut # (Auto) 11.7 K/uL (1.8-7.0) H 02/27/18 08:08 Lymph # (Auto) 3.0 K/uL (1.0-4.3) 02/27/18 08:08 [place] # (Auto) 0.8 K/uL (0.0-0.8) 02/27/18 08:08 Eos # (Auto) 0.0 K/uL (0.0-0.7) 02/27/18 08:08 Baso # (Auto) 0.0 K/uL (0.0-0.2) 02/27/18 08:08 D-Dimer, Quantitative < 200 ng/mlDDU (0-243) 02/24/18 20:11 Sodium 140 mmol/L (132-148) 02/27/18 08:08 Potassium 4.0 mmol/L (3.6-5.2) 02/27/18 08:08 Chloride 104 mmol/L (98-107) 02/27/18 08:08 Carbon Dioxide 24 mmol/L (22-30) 02/27/18 08:08 Anion Gap 16 (10-20) 02/27/18 08:08 BUN 22 mg/dL (7-17) H 02/27/18 08:08 Creatinine 0.8 mg/dL (0.7-1.2) 02/27/18 08:08 Est GFR ( Amer) > 60 02/27/18 08:08 Est GFR (Non-Af Amer) > 60 02/27/18 08:08 Random Glucose 163 mg/dL (65-105) H 02/27/18 08:08 Hemoglobin A1c 6.0 % (4.2-6.5) 02/25/18 06:40 Calcium 9.4 mg/dl (8.6-10.4) 02/27/18 08:08 Phosphorus 3.7 mg/dL (2.5-4.5) 02/26/18 06:45 Magnesium 2.0 mg/dL (1.6-2.3) 02/26/18 06:45 Total Bilirubin 0.4 mg/dL (0.2-1.3) 02/27/18 08:08 AST 22 U/L (14-36) 02/27/18 08:08 ALT 31 U/L (9-52) 02/27/18 08:08 Alkaline Phosphatase 86 U/L (38-126) 02/27/18 08:08 Troponin I < 0.0120 ng/mL (0.00-0.120) 02/24/18 15:58 NT-Pro-B Natriuret Pep 32.9 pg/mL (0-900) 02/24/18 15:58 Total Protein 7.4 g/dL (6.3-8.3) 02/27/18 08:08 Albumin 3.8 g/dL (3.5-5.0) 02/27/18 08:08 Globulin 3.6 gm/dL (2.2-3.9) 02/27/18 08:08 Albumin/Globulin Ratio 1.1 (1.0-2.1) 02/27/18 08:08 Triglycerides 65 mg/dL (0-149) 02/25/18 06:40 Cholesterol 143 mg/dL (0-199) 02/25/18 06:40 LDL Cholesterol Direct 68 mg/dL (0-129) 02/25/18 06:40 HDL Cholesterol 49 mg/dL (30-70) 02/25/18 06:40 TSH 3rd Generation 0.37 mIU/L (0.46-4.68) L 02/25/18 06:40 Influenza Typ A,B (EIA) Negative for flu a/b (NEGATIVE) 02/24/18 19:02 - Hospital Course Hospital Course: H&P: This patient is a 58yo F w/ a PMhx of HTN, Asthma only on albuterol currently smoking 1/2 pack a day living with 4 other smokers, depression/ anxiety and stressful living situation who is coming into the hospital for 2 weeks of shortness of breath which is not relieved by her inhalers. She also is complaining of a hacking cough, white phlegm, for 2 weeks. She was recently in [place] on vacation, and came back 4 days ago which is when her back pain started. She states she had PFT's done recently which showed "fluid' on her lungs, but did not diagnose her with COPD. She is admitting to fevers/chills, SOB, and back/lung pain that is 5/10 in nature, and tingling in her lower extremities and finger tips. She denies SCHWARTZ, CP, abdominal pain, N/V/D, dysuria/ freq/urg or lower extremity swelling. No hx of blood clots or family blood clots. Briefly, patient presented for dyspnea and cough ongoing for 2 weeks. Chest x ray on admission showed no active pulmonary disease. Patient did have slight elevated WBC count at 11.7. Troponin, EKG and d dimer were all normal. She was admitted for COPD exacerbation. Patient was started on IV steroids, breathing treatments and zithromax. Patient's symptoms improved considerably and she was deemed stable for discharge home per Dr. Burnett. - Date & Time of H&P Date of H&P: 02/27/18 Time of H&P: 15:35 Discharge Exam - Head Exam Head Exam: ATRAUMATIC - ENT Exam ENT Exam: Mucous Membranes Moist - Respiratory Exam Respiratory Exam: Clear to PA & Lateral, NORMAL BREATHING PATTERN. absent: Rales, Rhonchi, Wheezes - Cardiovascular Exam Cardiovascular Exam: REGULAR RHYTHM, +S1, +S2. absent: Diastolic murmur, Gallop , Rubs, Systolic Murmur - GI/Abdominal Exam GI & Abdominal Exam: Normal Bowel Sounds, Soft, Unremarkable. absent: Distended , Firm, Guarding, Rigid, Tenderness - Extremities Exam Additional comments: no pedal edema or tenderness - Neurological Exam Neurological exam: Alert, Oriented x3 - Psychiatric Exam Psychiatric exam: Normal Affect, Normal Mood - Skin Skin Exam: Dry, Intact, Normal Color, Warm Discharge Plan - Discharge Medications Prescriptions: Albuterol/Ipratropium [Combivent Respimat] 1 puff IH Q12 #1 inhaler Fluticasone/Salmeterol 250/50 [Advair Diskus 250/50] 1 puff INH RQ12 #1 inhaler guaiFENesin [Mucinex LA] 600 mg PO BID #30 tab Methylprednisolone [Medrol Dose Pack (21 tabs)] 4 mg PO DAILY #21 mg Nicotine 14 mg/24 hr [Nicoderm CQ] 1 patch TD DAILY #30 patch - Follow Up Plan Condition: FAIR Disposition: HOME/ ROUTINE Additional Instructions: Patient is stable for discharge per Dr. Burnett Patient is to follow up with PMD upon discharge. Patient is given referral for Dr. Burnett. Patient is discharged on the following new medications: Combivent, Advair, Medrol dose marlen, Nicotine patch #30, Mucinex 600 mg po BID #30. Patient is told to return to ED if symptoms worsen. Discussed the risks of tobacco abuse with patient in details. Recommended cessation. Referrals: Michael Burnett Jr., MD [Medical Doctor] -
== END 2018-02-27 17:05 | disposition home or self-care (01) ==
LOC: C.ER 15:25 → C.9E 17:54 → C.3T 19:05 → INTOOBSV 02-26 15:36 → OBSVTOIN 02-26 15:36
PROVIDERS: ADMIT Internal Medicine; ATTEND Internal Medicine
DX: J44.1 Chronic obstructive pulmonary disease with (acute) exacerbation (principal); J45.902 Unspecified asthma with status asthmaticus; F17.210 Nicotine dependence, cigarettes, uncomplicated; F12.90 Cannabis use, unspecified, uncomplicated; I10 Essential (primary) hypertension; F32.9 Major depressive disorder, single episode, unspecified; F41.9 Anxiety disorder, unspecified; G47.00 Insomnia, unspecified; Z90.710 Acquired absence of both cervix and uterus
CPT/HCPCS: 36415; 71045; 80053; 80061; 83036; 83735; 83880; 84100; 84443; 84484; 85025; 85378; 87040; 87804; 93005; 94640; 96365; 96366; 96367; 96372; 96375; 96376; 99285; G0378; J0456; J0696; J1644; J1650; J1885; J2930; J7050

== ENCOUNTER 2018-06-20 15:29 | Inpatient (IN) | payer MEDICAID ==
[2018-06-20 16:04] VITALS: BMI 33.2
[2018-06-20 16:47] LABS: BASO # 0.1 K/uL (0.0-0.2); BASO % 0.9 % (0.0-2.0); EOS # 0.3 K/uL (0.0-0.7); EOS % 2.4 % (0.0-4.0); LYMPH # 4.6 K/uL (1.0-4.3); LYMPH % 40.8 % (20.0-40.0); MEAN CELL VOLUME 91.6 fL (81.0-99.0); MEAN CORPUSCULAR HEMOGLOBIN 32.1 pg (27.0-31.0); MEAN CORPUSCULAR HGB CONC 35.1 g/dL (33.0-37.0); MEAN PLATELET VOLUME 9.5 fL (7.2-11.7); MONO # 0.5 K/uL (0.0-0.8); MONO % 4.3 % (0.0-10.0); NEUT # 5.8 K/uL (1.8-7.0); NEUT % 51.6 % (50.0-75.0); NRBC % 0.1 % (0.0-2.0); RBC 4.56 Mil/uL (3.80-5.20); RED CELL DISTRIBUTION WIDTH 14.3 % (11.5-14.5); SQUAMOUS EPITHIAL < 1 /hpf (0-5); URINE BILIRUBIN NEGATIVE (NEGATIVE); URINE BLOOD NEGATIVE (NEGATIVE); URINE CLARITY Clear (Clear); URINE COLOR Colorless (YELLOW); URINE GLUCOSE (UA) NORMAL (Normal); URINE LEUKOCYTE ESTERASE NEG Leu/uL (Negative); URINE PROTEIN NEGATIVE (NEGATIVE); URINE UROBILINOGEN NORMAL mg/dL (0.2-1.0); WHITE BLOOD COUNT 11.3 K/uL (4.8-10.8)
[2018-06-20 17:06] LABS: ALB/GLOB RATIO 1.2 (1.0-2.1); ALBUMIN 4.7 g/dL (3.5-5.0); ALT/SGPT 57 U/L (9-52); AST/SGOT 43 U/L (14-36); BLOOD UREA NITROGEN 10 mg/dL (7-17); CALCIUM 10.1 mg/dl (8.6-10.4); GFR NON-AFRICAN AMERICAN > 60
[2018-06-20 17:07] LABS: HEMOGLOBIN 14.7 g/dL (11.0-16.0)
[2018-06-20 17:14] LABS: BARBITURATES, UR NEGATIVE (NEGATIVE); BENZODIAZEPINES, UR NEGATIVE (NEGATIVE); OPIATES, UR NEGATIVE (NEGATIVE); PHENCYCLIDINE, UR NEGATIVE (NEGATIVE)
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
--- NOTE | 2018-06-20 20:06 | PCM.BM ---
<Dolores Kaufman - Last Filed: 06/20/18 20:04> Treatment Plan Problems - Problems identified on initial assessmt depression Date Initiated: 06/20/18 Time Initiated: 20:05 Assessment reference: NA Status: Active Treatment assets and liabiliti Patient Assests: cooperative, educated, motivated, ADL independent, good support system, negotiates basic needs, cognitively intact, good interpersonal skills Patient Liabilities: financial problems, dietary restrictions, substance abuse, medical problems - Milieu Protocol Maintain good personal hygiene: daily Encourage regular showers, daily Remind patient to perform daily oral care, daily Assist patient to perform ADL's Conduct patient checks and document Observation sheet: Q15 minutes Maintain personal safety: every shift Educate patient to report safety concerns to staff, every shift Monitor environment for contraband/sharps Medication safety: Monitor for expected outcome, potential side effects: every shift, Assess barriers to learning: every shift, Assess readiness for medication education: every shift <Ines Valenzuela - Last Filed: 06/22/18 12:07> Family Contact Family involvement: Family/SO is involved Family contact: Patient declines to allow family contact at present - Goals for Treatment Patient goals for treatment: "I need a place to live." Discharge/Continuing Care - Education Needs Education Needs: Patient Medication, Patient Coping Skills - Discharge Discharge Criteria: Tolerates medication w/o severe side effects, Reduction of target symptoms Discharge to:: Home, With Family - Treatment Team Participation Discussed with Family/SO: No Was Patient/Family/SO present at Treatment Team Meeting: Yes <Den Madera - Last Filed: 06/24/18 13:22> - Diagnosis (1) Bipolar disorder Status: Acute Interventions: 06/24/18 13:22 * Assess/adjust medications daily and /or as needed * See patient on an individual basis 7x/week to assess level of manic behaviors and stability * Discuss risks, benefits, side effects and alternatives of medications *
[2018-06-20] MEDS ORDERED: QUEtiapine 50 mg XR Tab PO SCH (22:00)
[2018-06-21] MEDS ORDERED: Albuterol-Ipratrop 3 mg / 0.5 (3 ml) UD IH PRN (10:39)
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
[2018-06-21] MEDS ORDERED: Vitamins A & D Oint UD Foilpak TOP PRN (19:59)
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
[2018-06-22 16:37] VITALS: O2SAT 96
--- NOTE | 2018-06-23 13:47 | PCM.PYCHPN ---
Psychiatric Progress Note - Psychiatric Progress Note Patient seen today, length of contact: 15 minutes Patient Chief Complaint: I m still feeling some irritability.' Problems Identified/Issues Discussed: Patient seen and evaluated, chart reviewed and discussed with the nurse. She reports some improvement in her racing thoughts and irritability. She also reports some improvement in her sleep and appetite. She reports improvement in her paranoia. Patient is compliant with medications and denies any side effects. Symptoms are improving but need more time to stabilize. Support and psychoeducation given. Medication Change: Yes Medical Record Reviewed: Yes Mental Status Examination - Cognitive Function Orientation: Person, Place, Situation, Time Attention: WNL Concentration: Poor Association: WNL Fund of Knowledge: WNL - Mood Mood: Depressed, Anxious - Affect Affect: Constricted, Depressed - Formal Thought Process Formal Thought Process: No Impairment - Suicidal Ideation Suicidal Ideation: No - Homicidal Ideation Homicidal Ideation: No Goal/Treatment Plan - Goal/Treatment Plan Need for Continued Stay: Severe depression anxiety, Discharge may exacerbated symptoms, Severe functional impairment Progress Toward Problem(s) and Goals/Treatment Plan: Bipolar disorder Mixed severe with psychotic features CBT Psychoeducation Supportive therapy, group therapy Klonopin 1 mg PO BID Seroquel 50 mg PO Q AM Seroquel 200 mg PO QHS Neurontin 300 mg PO TID Trazodone for insomnia Hydroxyzine for anxiety Alcohol use disorder Moderate CBT Psychoeducation Supportive therapy, individual therapy Cocaine use disorder Moderate CBT Psychoeducation Supportive therapy, individual therapy Use [place] for abstinence
[2018-06-24] MEDS: Fluticasone-Salmeterol 250-50mcg Diskus INH SCH ×2 (09:59→20:23)
--- NOTE | 2018-06-24 11:10 | PCM.PYCHPN ---
Psychiatric Progress Note - Psychiatric Progress Note Patient seen today, length of contact: 15 minutes Patient Chief Complaint: I m feeling little better.' Problems Identified/Issues Discussed: Patient seen and evaluated, chart reviewed and discussed with the nurse. Per staff she started interacting with other peers. She reports some improvement in her agitation, racing thoughts and irritability. She also reports some improvement in her sleep and appetite. She reports improvement in her paranoia. Patient is compliant with medications and denies any side effects. Symptoms are improving but need more time to stabilize. Support and psychoeducation given. Medication Change: Yes Medical Record Reviewed: Yes Mental Status Examination - Cognitive Function Orientation: Person, Place, Situation, Time Attention: WNL Concentration: Poor Association: WNL Fund of Knowledge: Poor - Mood Mood: Depressed, Anxious - Affect Affect: Constricted, Depressed - Formal Thought Process Formal Thought Process: No Impairment - Suicidal Ideation Suicidal Ideation: No - Homicidal Ideation Homicidal Ideation: No Goal/Treatment Plan - Goal/Treatment Plan Need for Continued Stay: Severe depression anxiety, Discharge may exacerbated symptoms, Severe functional impairment Progress Toward Problem(s) and Goals/Treatment Plan: Bipolar disorder Mixed severe with psychotic features CBT Psychoeducation Supportive therapy, group therapy dc Klonopin 1 mg PO BID Seroquel 50 mg PO Q AM Seroquel 200 mg PO QHS Neurontin 300 mg PO TID Trazodone for insomnia Hydroxyzine for anxiety Alcohol use disorder Moderate CBT Psychoeducation Supportive therapy, individual therapy Cocaine use disorder Moderate CBT Psychoeducation Supportive therapy, individual therapy Use [place] for abstinence
[2018-06-25] MEDS: Fluticasone-Salmeterol 250-50mcg Diskus INH SCH ×3 (09:18→21:38)
[2018-06-26] MEDS: Fluticasone-Salmeterol 250-50mcg Diskus INH SCH ×2 (09:00→20:06)
--- NOTE | 2018-06-26 12:16 | PCM.PYCHPN ---
Psychiatric Progress Note - Psychiatric Progress Note Patient seen today, length of contact: 15 minutes Patient Chief Complaint: "I am not well" Problems Identified/Issues Discussed: The pt is seen, chart reviewed, case discussed with staff. Support and psychoeducation given No new symptoms reported, improving slowly and needs more time No SEs from medications, risks discussed. After care discussed Medication Change: Yes Medical Record Reviewed: Yes Mental Status Examination - Cognitive Function Orientation: Person, Place, Situation, Time Attention: WNL Concentration: Poor Association: WNL Fund of Knowledge: Poor - Mood Mood: Depressed, Anxious - Affect Affect: Constricted, Depressed - Formal Thought Process Formal Thought Process: No Impairment - Suicidal Ideation Suicidal Ideation: No - Homicidal Ideation Homicidal Ideation: No Goal/Treatment Plan - Goal/Treatment Plan Need for Continued Stay: Severe depression anxiety, Discharge may exacerbated symptoms, Severe functional impairment Progress Toward Problem(s) and Goals/Treatment Plan: Continue medications. Support and psychoeducation daily Attend groups and activities daily After care planning by RAZ Estimated Date of D/C: 06/27/18
[2018-06-27 06:44] VITALS: PULSE 77; RESP 20
[2018-06-27 06:54] VITALS: TEMP 97.9
[2018-06-27] MEDS: Fluticasone-Salmeterol 250-50mcg Diskus INH SCH (09:00)
[2018-06-27 09:04] VITALS: BP 105/74
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
== END 2018-06-27 12:00 | disposition home or self-care (01) | DRG 430 ==
LOC: C.ER 15:29 → C.5E 18:50
PROC: GZHZZZZ Group Psychotherapy (ICD-10-PCS; principal; 2018-06-20)
PROC: GZ56ZZZ Individual Psychotherapy, Supportive (ICD-10-PCS; 2018-06-20)
DX: F31.64 Bipolar disorder, current episode mixed, severe, with psychotic features (principal); J44.9 Chronic obstructive pulmonary disease, unspecified; F14.10 Cocaine abuse, uncomplicated; G47.00 Insomnia, unspecified; F41.9 Anxiety disorder, unspecified; I10 Essential (primary) hypertension; Y90.1 Blood alcohol level of 20-39 mg/100 ml; Z87.891 Personal history of nicotine dependence; F10.120 Alcohol abuse with intoxication, uncomplicated